=== PATIENT | male | born 1985 | race Caucasian/White ===

== ENCOUNTER 2022-07-25 20:01 | Emergency (ER) | payer MEDICAID ==
[~2022-07-25] VITALS: Ht 185.4 cm; Wt 92.1 kg
--- NOTE | 2022-07-25 20:08 | NUR ---
PT TAKEN TO BED 4
[2022-07-25 20:10] VITALS: BP 123/59
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
--- NOTE | 2022-07-25 20:26 | NUR ---
Dr. Ramos examining patient.
[2022-07-25] MEDS ORDERED: KETOROLAC 60 MG/2 ML VIAL IM ONE (20:30)
[2022-07-25 20:58] VITALS: BP 122/61
--- NOTE | 2022-07-25 20:58 | NUR ---
Patient discharged with v/s stable. Written and verbal after care instructions given and explained. Patient verbalized understanding. Ambulatory with steady gait. All questions addressed prior to discharge. Advised to follow up with PMD.
== END 2022-07-25 20:58 | disposition home or self-care (01) ==
LOC: MED 20:01
DX: S13.4XXA Sprain of ligaments of cervical spine, initial encounter (principal); R51.9 Headache, unspecified; V89.2XXA Person injured in unspecified motor-vehicle accident, traffic, initial encounter; Y93.89 Activity, other specified; Y92.410 Unspecified street and highway as the place of occurrence of the external cause; Y99.8 Other external cause status
CPT/HCPCS: 96372; 99283; J1885